=== PATIENT | female | born 1960 | race Native Hawaiian/Other Pacific Islander ===

== ENCOUNTER 2018-12-13 10:06 | Day surgery (SDC) | payer OTHER | END 2018-12-13 13:20 | disposition home or self-care (01) | LOC: OR 10:06 | PROC: 3E0T3BZ Introduction of Anesthetic Agent into Peripheral Nerves and Plexi, Percutaneous Approach (ICD-10-PCS; principal; 2018-12-13) | PROC: 3E0T33Z Introduction of Anti-inflammatory into Peripheral Nerves and Plexi, Percutaneous Approach (ICD-10-PCS; 2018-12-13) | PROC: BR16YZZ Fluoroscopy of Lumbar Facet Joint(s) using Other Contrast (ICD-10-PCS; 2018-12-13) | DX: M47.817 Spondylosis without myelopathy or radiculopathy, lumbosacral region (principal) | CPT/HCPCS: J1100; J2001 ==

== ENCOUNTER 2018-12-27 09:29 | Day surgery (SDC) | payer OTHER | END 2018-12-27 12:35 | disposition home or self-care (01) | LOC: OR 09:29 | PROC: 3E0T33Z Introduction of Anti-inflammatory into Peripheral Nerves and Plexi, Percutaneous Approach (ICD-10-PCS; principal; 2018-12-27) | PROC: 3E0T3BZ Introduction of Anesthetic Agent into Peripheral Nerves and Plexi, Percutaneous Approach (ICD-10-PCS; 2018-12-27) | PROC: BR16YZZ Fluoroscopy of Lumbar Facet Joint(s) using Other Contrast (ICD-10-PCS; 2018-12-27) | DX: M47.819 Spondylosis without myelopathy or radiculopathy, site unspecified (principal) | CPT/HCPCS: J1100; J2001 ==

== ENCOUNTER 2019-03-13 08:37 | Day surgery (SDC) | payer OTHER ==
[~2019-03-13] VITALS: Ht 30.5 cm; Wt 0.5 kg
== END 2019-03-13 10:50 | disposition home or self-care (01) ==
LOC: OR 08:37
PROC: 3E0T3TZ Introduction of Destructive Agent into Peripheral Nerves and Plexi, Percutaneous Approach (ICD-10-PCS; principal; 2019-03-13)
PROC: BR16YZZ Fluoroscopy of Lumbar Facet Joint(s) using Other Contrast (ICD-10-PCS; 2019-03-13)
DX: M47.817 Spondylosis without myelopathy or radiculopathy, lumbosacral region (principal)
CPT/HCPCS: J2001

== ENCOUNTER → 2019-04-10 | Day surgery (SDC) | payer OTHER | LOC: OR 09:02 | PROC: 3E0T3TZ Introduction of Destructive Agent into Peripheral Nerves and Plexi, Percutaneous Approach (ICD-10-PCS; principal; 2019-04-10) | PROC: BR16YZZ Fluoroscopy of Lumbar Facet Joint(s) using Other Contrast (ICD-10-PCS; 2019-04-10) | DX: M47.817 Spondylosis without myelopathy or radiculopathy, lumbosacral region (principal) | CPT/HCPCS: J2001 ==